=== PATIENT | male | born 1990 | race Caucasian/White ===

== ENCOUNTER 2017-05-11 10:49 | Emergency (ER) | payer OTHER ==
[~2017-05-11] VITALS: Ht 188 cm; Wt 74.8 kg
--- NOTE | ~2017-05-11 | CR72 ---
[facility] A Service of [facility] & [facility] RADIOLOGY TEXT RESULTS PATIENT: RANDALL FUCHS LOCATION: [facility] : [birth year] UNIT #: [id number] AGE: [address]: Renato Lerma MD SEX: M ORDER DR: [id number] [facility] [address] [place], [place] [address] [id number] E MR#: [id number] Acc #: [id number] NAME: RANDALL FUCHS : 1990 SEX: M STUDY DATE/TIME: 05/11/2017 UNIT: [facility] ROOM: STUDY DESCRIPTION: CR Chest Single View Portable Attending Physician: Renato Lerma M.D. Ordering Physician: Renato Lerma M.D. Primary Care Physician: No Primary Care Physician MEDICAL IMAGING REPORT This report is preliminary unless electronic signature is present EXAM Chest, portable, 05/11/2017, 1131 hours. HISTORY 26-year-old man with chest pain, fever, and anxiety. History of IV drug use. COMPARISON None FINDINGS 2 upright portable films are performed. There are normal cardiac, mediastinal, and hilar contours. Lungs are hyperinflated but clear. There is no effusion or bone lesion. IMPRESSION The pulmonary hyperinflation with clear lungs. No acute cardiopulmonary findings are seen. Dictated by... Kimberly Casanova M.D. THIS IS AN ELECTRONICALLY VERIFIED REPORT Kimberly Casanova M.D. at 05/12/2017 9:11 AM Yaima TD: 05/11/2017 17:41 JOB #: [id number] MEDICAL IMAGING REPORT Page 1 of 1 COPY
--- NOTE | ~2017-05-11 | EKG ---
PATIENT: RANDALL FUCHS UNIT #: [id number] Ventricular Rate: 99 BPM Atrial Rate: 99 BPM P-R Interval: 140 ms QRS Duration: 86 ms Q-T Interval: 330 ms QTC Calculation(Bezet): 423 ms P [place]: 66 degrees Calculated R [place]: 65 degrees Calculated T [place]: 24 degrees Diagnosis Line: Normal sinus rhythm Diagnosis Line: Normal ECG Diagnosis Line: No previous ECGs available Diagnosis Line: Confirmed by LUDY FERREIRA MD ([id number]) on Diagnosis Line: 05/11/2017 7:37:24 PM INTERPRETING MD: JHON PAREDES
[~2017-05-11 10:49] MED LIST: AMOXICILLIN; FIORICET 50-321 EACH PO; KETOPROFEN PO
[2017-05-11 11:42] LABS: BASOPHIL% 0.4 % (0-2.5); EOSINOPHIL# 0.1 X10e3 (0-0.7); EOSINOPHIL% 1.4 % (0.0-7.0); HEMATOCRIT 38.1 % (38.0-50.0); HEMOGLOBIN 12.8 gm/dL (13.0-16.0); LYMPHOCYTE% 19.6 % (17.0-45.0); MEAN CELL VOLUME 84.5 FL (83-96); MEAN CORPUSCULAR HEMOGLOBIN 28.5 PG (28-34); MEAN CORPUSCULAR HGB CONC 33.7 g/dL (30-36); MONOCYTE# 0.5 X10e3 (0-1.0); MONOCYTE% 9.6 % (3.0-12.0); NEUTROPHIL# 3.4 X10e3 (1.5-7.1); PLATELET COUNT 221 X10e3 (140-420); RED BLOOD COUNT 4.51 X10e (3.90-5.60)
[2017-05-11 11:43] LABS: DIFF IND NO
[2017-05-11 11:54] LABS: POC - CKMB <1.0 ng/mL (0.0-7.9); POC - TROPONIN <0.05 ng/mL (<=0.05)
[2017-05-11 12:21] LABS: ALBUMIN SERUM 4.5 g/dL (3.5-5.0); BILIRUBIN, DIRECT 0.1 mg/dL (0.0-0.2); BILIRUBIN,INDIRECT 0.4 mg/dL (0.0-0.9); BILIRUBIN,TOTAL 0.5 mg/dL (0.2-2.0); BUN/CREATININE RATIO 11.11; CALCIUM SERUM 9.6 mg/dL (8.4-10.2); CREATININE SERUM 0.9 mg/dL (0.6-1.4); GLOM FILT RATE Estimated 116.6 mL/min (>60); POTASSIUM 3.6 mmol/L (3.5-5.1); PROTEIN TOTAL SERUM 7.7 g/dL (6.0-8.3)
== END 2017-05-11 13:03 | disposition home or self-care (01) ==
LOC: CED 10:49
PROVIDERS: Emergency Medicine
DX: R07.89 Other chest pain (principal); F41.9 Anxiety disorder, unspecified
CPT/HCPCS: 36415; 71010; 80048; 80076; 82553; 84484; 85025; 85379; 87040; 93005; 96361; 96374; 99285; J1885